=== PATIENT | female | born 1980 | race Two or more races ===

== ENCOUNTER → 2025-05-15 | Outpatient (CLI) | payer MEDICAID, SELFPAY ==
--- NOTE | 2025-05-15 08:15 | XR_ITS ---
Examination: Screening digital mammography, bilateral Computer aided detection 3-D breast Tomosynthesis, bilateral Date and time of exam: 424, 2025, 0805 hours, compared to mammograms dating to December 06, 2023 Indication: Screening Technique: Nonmagnified MLO, CC views of the breasts to been obtained, reconstructed from 3-D Tomosynthesis images. R2 computer aided detection program utilized for evaluation of suspicious masses and/or abnormal calcifications. 3-D Tomosynthesis images obtained. Findings: The breasts are heterogeneously dense, which may obscure small masses Bilateral benign appearing calcifications Stable focal asymmetry outer right breast CC view posterior depth Interval 6 mm nodule indistinct margins 9:00 position left breast Impression: BI-RADS Category 0: Incomplete: Additional imaging evaluation Recommend follow-up spot tomographic views of 9:00 nodule left breast as well as bilateral breast sonography to complete the workup.
== END | disposition home or self-care (01) ==
PROVIDERS: PCP Registered Nurse Community Health; Referring Provider Registered Nurse Community Health; Visit Provider Registered Nurse Community Health
DX: Z12.31 Encounter for screening mammogram for malignant neoplasm of breast (principal); N63.25 Unspecified lump in the left breast, overlapping quadrants; R92.8 Other abnormal and inconclusive findings on diagnostic imaging of breast
CPT/HCPCS: 77063; 77067

== ENCOUNTER → 2025-06-11 | Outpatient (CLI) | payer MEDICAID, SELFPAY ==
--- NOTE | 2025-06-11 | XR_ITS ---
Examination: Diagnostic digital mammography, unilateral, left Computer aided detection 3-D breast Tomosynthesis, unilateral Date and time of exam: June 11, 2025, 1254 hours INDICATIONS: Mammogram 05/15/2025 9:00 nodule 6 mm left breast Technique: Nonmagnified MLO, CC views of the left breast have been obtained, reconstructed from 3-D Tomosynthesis images. R2 computer aided detection program utilized for evaluation of suspicious masses and/or abnormal calcifications. 3-D Tomosynthesis images obtained. Findings: The breast is heterogeneously dense, which may obscure small masses No suspicious masses noted on spot compression views Impression: BI-RADS category 2: Benign findings Return to yearly follow-up mammography Please see the left breast sonogram report and recommendations today
--- NOTE | 2025-06-11 12:48 | XR_ITS ---
Examination: Breast ultrasound complete, bilateral Date and time of exam: June 11, 2025, 1313 hours INDICATIONS: Mammogram 05/15/2025 focal asymmetry outer right breast, 6 mm nodule indistinct margins 11 o'clock position left breast Technique: Real-time grayscale ultrasonographic imaging bilateral breasts, including all 4 quadrants as well as nipple retroareolar and axillary regions. Findings: Sonographic images right breast 5:00 cyst 6 x 6 mm 10:00 cyst 3 x 4 mm No solid nodules Sonographic images left breast 2:00 cyst 3 x 3 mm Nodule lobular margins 6 x 5 mm Retroareolar nodule lobular margins 14 x 12 mm IMPRESSION: BI-RADS Category 3: Probably benign findings 1 additional 6-month left breast sonogram follow-up is needed to document stability of solid nodules described above
--- NOTE | 2025-06-11 14:25 | XR_ITS ---
EXAMINATION: Ultrasound soft tissue neck TECHNIQUE: Grayscale sonographic images soft tissue neck Date and time: June 11, 2025, 1453 hours INDICATIONS: Palpable lump in the posterior neck noticed beginning 4 months ago. FINDINGS: Small cyst in the soft tissue at the area of concern posterior lateral neck region 7 x 4 x 10 mm IMPRESSION: Small cyst in the soft tissue at the area of concern posterior lateral neck 7 x 4 x 10 mm
== END | disposition home or self-care (01) ==
PROVIDERS: PCP Registered Nurse Community Health; Referring Provider Registered Nurse Community Health; Visit Provider Registered Nurse Community Health
DX: R92.322 Mammographic fibroglandular density, left breast (principal); N63.42 Unspecified lump in left breast, subareolar; R22.1 Localized swelling, mass and lump, neck; Z80.7 Family history of other malignant neoplasms of lymphoid, hematopoietic and related tissues
CPT/HCPCS: 76536; 76641; 77061; 77065; G0279